=== PATIENT | male | born 1950 | race Caucasian/White ===

== ENCOUNTER 2024-09-26 09:31 | Day surgery (SDC) | payer MEDICARE, OTHER ==
[2024-09-21 11:04] LABS: BASOPHILS % (AUTO) 0.4 % (0-1); EOSINOPHILS # (AUTO) 0.4 X10'3 (0-0.9); EOSINOPHILS % (AUTO) 3.4 % (0-6); LYMPHOCYTES # (AUTO) 1.7 X10'3 (1.1-4.8); LYMPHOCYTES % (AUTO) 14.2 % (21-51); MEAN CORPUSCULAR HEMOGLOBIN 33.1 PG (27.0-31.0); MEAN CORPUSCULAR HGB CONC 32.6 g/dL (33.0-36.5); MEAN CORPUSCULAR VOLUME 101.4 FL (78-98); MONOCYTES # (AUTO) 1.2 X10'3 (0-0.9); MONOCYTES % (AUTO) 9.9 % (2-12); NEUTROPHILS # (AUTO) 8.8 X10'3 (1.8-7.7); NEUTROPHILS % (AUTO) 72.1 % (42-75); PRE OP HEMATOCRIT 54.7 % (42.0-52.0); PRE OP HEMOGLOBIN 17.8 g/dL (14.0-17.9); PRE OP PLATELET COUNT 426 X10'3 (140-440); PRE OP WHITE BLOOD COUNT 12.1 10'3 (4.8-10.8); RED BLOOD COUNT 5.39 X10'6 (4.70-6.10); RED CELL DISTRIBUTION WIDTH 14.4 % (11.5-14.5)
[2024-09-21 11:28] LABS: ALBUMIN 3.5 G/DL (3.4-5.0); ALKALINE PHOSPHATASE 99 IU/L (46-116); BLOOD UREA NITROGEN 12 MG/DL (7-18); BUN/CREATININE RATIO 11.9 (10.0-20.0); CALCIUM 8.9 MG/DL (8.5-10.1); CHLORIDE 102 MMOL/L (99-107); CREATININE 1.01 MG/DL (0.60-1.10); PRE OP ALT 13 U/L (30-65); PRE OP ANION GAP 8 (8-16); PRE OP AST 16 U/L (10-37); PRE OP BILIRUB, TOTAL 0.9 MG/DL (0.0-1.0); PRE OP GLUCOSE 94 MG/DL (70-104); PRE OP POTASSIUM 4.2 MMOL/L (3.4-5.1); PRE OP SODIUM 135 MMOL/L (135-145); TOTAL CARBON DIOXIDE 24.7 MMOL/L (24-32); TOTAL PROTEIN 7.1 G/DL (6.4-8.2); eGFR 72 ML/MIN
[~2024-09-26] VITALS: Ht 172.7 cm; Wt 66.0 kg
[2024-09-26] VITALS (17 sets, daily range): BP systolic 89–143; BP diastolic 47–92; PULSE 75–102; RESP 12–23; TEMP 98; O2SAT 90–98
[2024-09-26] MEDS: ceFAZolin 2gm in dextrose, iso 50 ML IV ONE (05:30)
[~2024-09-26 09:31] MED LIST: FLO0.4C PO; LISI1TAB51 PO; SIMV10TA98 PO
[2024-09-26] MEDS: famotidine 20mg tablet PO ONE (10:08)
[2024-09-26] MEDS: tamsulosin 0.4mg capsule PO ONE (10:09)
[2024-09-26] MEDS: ringers solution, lacted 1,000 ML IV SCH (10:11)
[2024-09-26] MEDS ORDERED: LIDOcaine 1% 30ml preserv. free vial ONE (10:11)
[2024-09-26] MEDS ORDERED: BUPIVAcaine 2.5mg/ml inj 50ml vial (contains preservative) ONE (10:11)
[2024-09-26] MEDS ORDERED: HYDROmorphone/PF 0.2 MG/ML SYRINGE IV PRN ×2 (11:05)
[2024-09-26] MEDS ORDERED: morphine 4 MG/ML inj SYRINge IV PRN (11:05)
[2024-09-26] MEDS ORDERED: ondansetron/PF 4mg/2ml inj IV PRN (11:05)
[2024-09-26] MEDS ORDERED: meperidine/PF 25mg/ml syringe IV PRN (11:05)
[2024-09-26] MEDS ORDERED: labetalol 20mg/4ml (5mg/ml) syringe IV PRN (11:05)
[2024-09-26] MEDS ORDERED: morphine 2 MG/ML inj. syringe IV PRN (11:05)
[2024-09-26] MEDS ORDERED: ringers solution, lacted 1,000 ML IV SCH (11:05)
[2024-09-26] MEDS ORDERED: sevoflurane 250ml liquid IH ONE (11:56)
[2024-09-26] MEDS ORDERED: rocuronium 10mg/ml inj IV ONE (11:57)
[2024-09-26] MEDS ORDERED: propofol inj 20 ML IV ONE (11:57)
[2024-09-26] MEDS ORDERED: fentaNYL/PF 50MCG/1 ML 2ML syringe ONE (11:57)
[2024-09-26] MEDS ORDERED: midazolam 1 mg/ML 2ml injection ONE (11:57)
[2024-09-26] MEDS: BUPIVAcaine/PF 2.5 mg/ml (0.25%) 30ml vial IJ ONE (12:23)
[2024-09-26] MEDS ORDERED: dexamethasone sod phosphate 4mg/ml inj. ONE (13:01)
[2024-09-26] MEDS ORDERED: neostigmine methylsulfate 1 MG/ML 10ml vial ONE (13:02)
[2024-09-26] MEDS ORDERED: ondansetron/PF 4mg/2ml inj ONE (13:02)
[2024-09-26] MEDS ORDERED: glycopyrrolate 0.2mg/ml inj ONE (13:02)
[2024-09-26] MEDS ORDERED: HYDROcodone/acetaminophen 5mg/325mg tablet PO PRN (13:25)
== END 2024-09-26 18:22 | disposition home or self-care (01) ==
LOC: PAS 09:31
PROVIDERS: ATTEND Surgery
DX: K40.90 Unilateral inguinal hernia, without obstruction or gangrene, not specified as recurrent (principal); K66.0 Peritoneal adhesions (postprocedural) (postinfection); I10 Essential (primary) hypertension; F17.210 Nicotine dependence, cigarettes, uncomplicated; J44.9 Chronic obstructive pulmonary disease, unspecified; E78.5 Hyperlipidemia, unspecified; Z79.899 Other long term (current) drug therapy; Z90.81 Acquired absence of spleen; Z98.890 Other specified postprocedural states
CPT/HCPCS: 36415; 49650; 80053; 82948; 85025; 93005; A4215; A4618; C1781; J0690; J1100; J2003; J2250; J2405; J2704; J2710; J3010; J3490; J7030; J7120; Z7506; Z7508; Z7512; Z7610